=== PATIENT | female | born 1935 | race Asian ===

== ENCOUNTER 2017-07-31 15:57 | Inpatient (IN) | payer OTHER, MEDICAID ==
[~2017-07-31] VITALS: Ht 149.9 cm; Wt 40.9 kg
[~2017-07-31 15:57] MED LIST: METO200T5 PO; OXYC-302
[2017-07-31] MEDS ORDERED: SODIUM CHLORIDE FLUSH 10ML SYR IVF ONE (16:30)
[2017-07-31] MEDS ORDERED: SODIUM CHLORIDE 0.9% 1,000ML IVBOLUS ONE (16:30)
[2017-07-31 16:33] LABS: BASOPHILS # (AUTO) 0.01 x10^3/uL (0-0.1); BASOPHILS % (AUTO) 0 % (0-1); EOSINOPHILS # (AUTO) 0.01 x10^3/uL (0-0.4); EOSINOPHILS % (AUTO) 0 % (1-7); LYMPHOCYTES # (AUTO) 0.54 x10^3/uL (1-3.4); LYMPHOCYTES % (AUTO) 12 % (22-44); MD NO; MEAN CORPUSCULAR HEMOGLOBIN 30.3 pg (27.0-34.8); MEAN CORPUSCULAR HGB CONC 33.3 g/dL (32.4-35.8); MEAN PLATELET VOLUME 6.9 fL (7.4-10.4); MONOCYTES # (AUTO) 0.38 x10^3/uL (0.2-0.8); MONOCYTES % (AUTO) 8 % (2-9); NEUTROPHILS # (AUTO) 3.65 x10^3/uL (1.8-6.8); NEUTROPHILS % (AUTO) 80 % (42-75); PLATELET COUNT 243 x10^3/uL (130-400); RED BLOOD COUNT 4.11 x10^6/uL (3.82-5.3)
[2017-07-31 16:41] LABS: ANION GAP 10 mmol/L (5-15); CALCIUM 8.3 mg/dL (8.5-10.1); CHLORIDE 101 mmol/L (98-107); CREATININE 1.22 mg/dL (0.55-1.02)
[2017-07-31] MEDS ORDERED: AZITHROMYCIN 500 MG TABLET PO ONE (17:00)
[2017-07-31] MEDS ORDERED: CEFTRIAXONE PMX 1GM/50ML 50 ML IVPB ONE (17:00)
[2017-07-31] MEDS ORDERED: ONDANSETRON ODT 4 MG PO PRN (18:00)
[2017-07-31] MEDS ORDERED: TEMAZEPAM 15 MG CAPSULE PO PRN (18:00)
[2017-07-31] MEDS ORDERED: DOCUSATE 100 MG CAPSULE PO PRN (18:00)
[2017-07-31] MEDS ORDERED: GUAIFENESIN/DM 200-20MG, 10ML UDC PO PRN (18:00)
[2017-07-31] MEDS ORDERED: hydrALAzine 20 MG/ML, 1ML IVPush PRN (18:00)
[2017-07-31] MEDS ORDERED: OXYC5CAP2 PO (18:09)
[2017-07-31] MEDS ORDERED: DOCU-131 PO (18:09)
[2017-07-31] MEDS ORDERED: GABA100C PO (18:09)
[2017-07-31] MEDS ORDERED: LOSA50TA6 PO (18:09)
[2017-07-31] MEDS ORDERED: CHLO25TA PO (18:09)
[2017-07-31] MEDS ORDERED: OMEP-110 PO (18:09)
[2017-07-31] MEDS ORDERED: ASPI-13 PO (18:09)
[2017-07-31] MEDS ORDERED: CHOL100012 PO (18:09)
[2017-07-31] MEDS ORDERED: METO50TA82 PO (18:09)
[2017-07-31] MEDS ORDERED: BIOT1TAB2 PO (18:09)
[2017-07-31] MEDS ORDERED: GLUC500T11 PO (18:09)
[2017-07-31] MEDS ORDERED: CEFTRIAXONE PMX 1GM/50ML 50 ML ONE (18:17)
[2017-07-31] MEDS ORDERED: AZITHROMYCIN 250 MG TABLET ONE (18:18)
[2017-07-31] MEDS: SODIUM CHLORIDE 0.9% 1,000 ML IV SCH (18:28)
[2017-07-31] MEDS ORDERED: ENOXAPARIN 40 MG/0.4 ML SQ SCH (20:30)
[2017-08-01 00:55] VITALS: BP 134/68
[2017-08-01] MEDS: SODIUM CHLORIDE 0.9% 1,000 ML IV SCH ×2 (01:47→09:37)
[2017-08-01 06:08] LABS: BASOPHILS # (AUTO) 0.01 x10^3/uL (0-0.1); BASOPHILS % (AUTO) 0 % (0-1); EOSINOPHILS # (AUTO) 0.15 x10^3/uL (0-0.4); EOSINOPHILS % (AUTO) 4 % (1-7); LYMPHOCYTES # (AUTO) 0.99 x10^3/uL (1-3.4); LYMPHOCYTES % (AUTO) 24 % (22-44); MD NO; MEAN CORPUSCULAR HEMOGLOBIN 30.7 pg (27.0-34.8); MEAN CORPUSCULAR HGB CONC 33.4 g/dL (32.4-35.8); MEAN PLATELET VOLUME 7.2 fL (7.4-10.4); MONOCYTES # (AUTO) 0.41 x10^3/uL (0.2-0.8); MONOCYTES % (AUTO) 10 % (2-9); NEUTROPHILS # (AUTO) 2.54 x10^3/uL (1.8-6.8); NEUTROPHILS % (AUTO) 62 % (42-75); PLATELET COUNT 213 x10^3/uL (130-400); RED BLOOD COUNT 4.04 x10^6/uL (3.82-5.3); RED CELL DISTRIBUTION WIDTH 14.1 % (9.6-15.2)
[2017-08-01 06:19] LABS: ANION GAP 8 mmol/L (5-15); CHLORIDE 109 mmol/L (98-107)
[2017-08-01 06:23] LABS: CALCIUM 8.4 mg/dL (8.5-10.1); CREATININE 0.83 mg/dL (0.55-1.02)
[2017-08-01 07:43] VITALS: BP 153/73
[2017-08-01] MEDS: AZITHROMYCIN 250 MG TABLET PO SCH (09:37)
[2017-08-01 13:02] VITALS: BP 150/81
[2017-08-01] MEDS: CEFTRIAXONE 1,000 MG in DEXTROSE 5% 50 ML IV SCH (17:08)
[2017-08-01 18:42] VITALS: BP 127/73
[2017-08-01] MEDS: ENOXAPARIN 30 MG/0.3 ML SQ SCH (22:21)
[2017-08-02 00:52] VITALS: BP 160/84
[2017-08-02 07:44] VITALS: BP 156/80
[2017-08-02] MEDS: AZITHROMYCIN 250 MG TABLET PO SCH (08:46)
[2017-08-02] MEDS: GUAIFENESIN ER 600 MG TABLET PO SCH ×2 (08:46→22:48)
[2017-08-02] MEDS: ACETAMINOPHEN 325 MG TABLET PO PRN ×2 (08:51→22:44)
[2017-08-02 13:14] VITALS: BP 132/85
[2017-08-02] MEDS: CEFTRIAXONE 1,000 MG in DEXTROSE 5% 50 ML IV SCH (17:30)
[2017-08-02 18:58] VITALS: BP 141/37
[2017-08-02] MEDS: ENOXAPARIN 30 MG/0.3 ML SQ SCH (22:48)
[2017-08-03 00:49] VITALS: BP 139/82
[2017-08-03] MEDS ORDERED: CEFD300C37 PO (08:04)
[2017-08-03] MEDS ORDERED: GUAI600T31 PO (08:04)
[2017-08-03] MEDS ORDERED: OXYC5CAP2 PO (08:04)
[2017-08-03 08:30] VITALS: BP 124/71
[2017-08-03] MEDS: AZITHROMYCIN 250 MG TABLET PO SCH (09:23)
[2017-08-03] MEDS: GUAIFENESIN ER 600 MG TABLET PO SCH (09:23)
[2017-08-03 15:11] VITALS: BP 138/94
[2017-08-03] MEDS ORDERED: FLU VACC QS2017-18 (36MOS+) UP/PF 0.5 ML IM-VACC ONE (15:30)
== END 2017-08-03 17:00 | disposition home or self-care (01) | DRG 682 ==
LOC: ED 17:04 → EDIP 17:05 → ED 17:11 → 4WST 20:06
PROVIDERS: ADMIT Hospitalist; ATTEND Hospitalist
DX: N17.0 Acute kidney failure with tubular necrosis (principal); J15.9 Unspecified bacterial pneumonia; D68.69 Other thrombophilia; I48.2 Chronic atrial fibrillation; I13.10 Hypertensive heart and chronic kidney disease without heart failure, with stage 1 through stage 4 chronic kidney disease, or unspecified chronic kidney disease; F11.20 Opioid dependence, uncomplicated; R13.10 Dysphagia, unspecified; R73.9 Hyperglycemia, unspecified; K21.9 Gastro-esophageal reflux disease without esophagitis; Z23 Encounter for immunization; I25.2 Old myocardial infarction; N18.9 Chronic kidney disease, unspecified; Z87.11 Personal history of peptic ulcer disease; Z87.891 Personal history of nicotine dependence; Z90.3 Acquired absence of stomach [part of]; Z90.710 Acquired absence of both cervix and uterus
CPT/HCPCS: 36415; 71045; 80048; 82040; 83605; 83880; 84145; 85025; 87040; 90686; 93005; 96360; 96361; J0696; J1650; J7030

== ENCOUNTER 2020-01-27 11:06 | Emergency (ER) | payer MEDICARE, MEDICAID ==
[~2020-01-27] VITALS: Ht 157.5 cm; Wt 45.5 kg
[~2020-01-27 11:06] MED LIST changes: +ASPI-13 PO; +BIOT1TAB2 PO; +CEFD300C37 PO; +CHLO25TA PO; +CHOL100012 PO; +DIVA125T2 PO; +DOCU-131 PO; +DONE10TA56 PO; +GABA100C PO; +GLUC500T11 PO; +GUAI600T31 PO; +LOSA50TA14 PO; +METO200T47 PO; -METO200T5 PO; +METO50TA82 PO; +OMEP-110 PO; +OXYC5CAP2 PO; +QUET50TA PO; +SIMV10TA PO
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
[2020-01-27] MEDS ORDERED: PLEASE ENTER HEIGHT AND WEIGHT MC SCH (11:30)
[2020-01-27] MEDS ORDERED: SODIUM CHLORIDE 0.9% 1,000ML IVBOLUS ONE (11:30)
--- NOTE | 2020-01-27 11:47 | NUR ---
UA COLLECTED VIA STRAIGHT CATH, PT JULIET WELL, LABELED AND WALKED TO LAB.
[2020-01-27 11:50] LABS: BASOPHILS # (AUTO) 0.01 x10^3/uL (0-0.1); BASOPHILS % (AUTO) 0 % (0-1); EOSINOPHILS # (AUTO) 0.61 x10^3/uL (0-0.4); EOSINOPHILS % (AUTO) 13 % (1-7); LYMPHOCYTES # (AUTO) 0.77 x10^3/uL (1-3.4); LYMPHOCYTES % (AUTO) 17 % (22-44); MD NO; MEAN CORPUSCULAR HEMOGLOBIN 30.9 pg (27.0-34.8); MEAN CORPUSCULAR HGB CONC 31.8 g/dL (32.4-35.8); MEAN CORPUSCULAR VOLUME 97.1 fL (80-100); MEAN PLATELET VOLUME 6.8 fL (7.4-10.4); MONOCYTES # (AUTO) 0.36 x10^3/uL (0.2-0.8); MONOCYTES % (AUTO) 8 % (2-9); NEUTROPHILS # (AUTO) 2.91 x10^3/uL (1.8-6.8); NEUTROPHILS % (AUTO) 62 % (42-75); PLATELET COUNT 250 x10^3/uL (130-400); RED BLOOD COUNT 3.28 x10^6/uL (3.82-5.3); RED CELL DISTRIBUTION WIDTH 14.8 % (9.6-15.2)
[2020-01-27 12:00] LABS: ALBUMIN 2.7 g/dL (3.4-5.0); ANION GAP 5 mmol/L (5-15); CALCIUM 8.3 mg/dL (8.5-10.1); CHLORIDE 110 mmol/L (98-107)
[2020-01-27 12:05] LABS: CREATININE 1.31 mg/dL (0.55-1.02); TROPONIN I < 0.015 ng/mL (0.000-0.045)
[2020-01-27 12:09] LABS: MICROSCOPIC AUTO
--- NOTE | 2020-01-27 12:13 | NUR ---
PT CHART REVIEWED AND PLACED FOR RECHECK
--- NOTE | 2020-01-27 12:55 | NUR ---
PT RESTING ON ANTOLIN. ARN. VSS. 2ND WARM BLANKET PROVIDED.
--- NOTE | 2020-01-27 14:07 | NUR ---
CALLED [facility] AND SPOKE W/ PT'S SACK CLEANING HAND AND NOTIFIED THAT PT WILL NOT BE ADMITTED AND SENT HOME WITH A PRESCRIPTION FOR ABX. ALL QUESTIONS ANSWERED. BARTOLO LUONG RN TO SET UP [facility] FOR PT TRANSPORT.
--- NOTE | 2020-01-27 14:16 | NUR ---
PT RESTING ON GURNEY. [employer]. [facility] SCHEDULED FOR 1529 TODAY.
[2020-01-27 15:19] VITALS: BP 144/73
--- NOTE | 2020-01-27 15:19 | NUR ---
PT RESTING ON GURNEY. NADN. PRINCE.
== END 2020-01-27 15:36 | disposition home or self-care (01) ==
LOC: ED 12:51
DX: N30.00 Acute cystitis without hematuria (principal); E86.0 Dehydration; R55 Syncope and collapse; R53.1 Weakness; I48.91 Unspecified atrial fibrillation; R41.82 Altered mental status, unspecified; R94.31 Abnormal electrocardiogram [ECG] [EKG]; I10 Essential (primary) hypertension; I25.2 Old myocardial infarction
CPT/HCPCS: 36415; 71045; 80048; 81001; 82040; 84484; 85025; 87077; 87086; 87186; 93005; 99285; J7030; 96360; 96361

== ENCOUNTER → 2020-03-17 | Outpatient (CLI) | payer MEDICARE, MEDICAID ==
[~2020-03-17] MED LIST changes: +OMNIPAQUE 350 MG/ML, 100ML BOTTLE ONE
== END | disposition home or self-care (01) ==
LOC: CFH 12:54
PROVIDERS: ATTEND Physician Assistant
DX: N20.0 Calculus of kidney (principal); J98.11 Atelectasis; M41.86 Other forms of scoliosis, lumbar region; M51.36 Other intervertebral disc degeneration, lumbar region; M43.8X6 Other specified deforming dorsopathies, lumbar region; M85.88 Other specified disorders of bone density and structure, other site; M43.16 Spondylolisthesis, lumbar region
CPT/HCPCS: 74177; Q9967

== ENCOUNTER 2020-04-09 17:36 | Inpatient (IN) | payer MEDICARE, MEDICAID ==
[~2020-04-09] VITALS: Ht 157.5 cm; Wt 41.2 kg
[~2020-04-09 17:36] MED LIST changes: -OMNIPAQUE 350 MG/ML, 100ML BOTTLE ONE
[2020-04-09] MEDS ORDERED: SODIUM CHLORIDE 0.9% 1,000ML IVBOLUS ONE (18:00)
[2020-04-09] MEDS ORDERED: SODIUM CHLORIDE FLUSH 10ML SYR IVF ONE (18:00)
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
[2020-04-09 18:17] LABS: BASOPHILS % (AUTO) 0 % (0-1); EOSINOPHILS # (AUTO) 0.64 x10^3/uL (0-0.4); EOSINOPHILS % (AUTO) 14 % (1-7); LYMPHOCYTES # (AUTO) 1.18 x10^3/uL (1-3.4); LYMPHOCYTES % (AUTO) 26 % (22-44); MD NO; MEAN CORPUSCULAR HEMOGLOBIN 31.4 pg (27.0-34.8); MEAN CORPUSCULAR HGB CONC 31.9 g/dL (32.4-35.8); MEAN PLATELET VOLUME 6.8 fL (7.4-10.4); MONOCYTES # (AUTO) 0.41 x10^3/uL (0.2-0.8); MONOCYTES % (AUTO) 9 % (2-9); NEUTROPHILS # (AUTO) 2.37 x10^3/uL (1.8-6.8); NEUTROPHILS % (AUTO) 52 % (42-75); PLATELET COUNT 266 x10^3/uL (130-400); RED CELL DISTRIBUTION WIDTH 14.3 % (9.6-15.2)
[2020-04-09 18:22] LABS: INTERNATIONAL NORMALIZED RATIO 1.08 (0.93-1.1); PROTHROMBIN TIME 11.1 Seconds (9.6-11.5)
[2020-04-09 18:23] LABS: ALBUMIN 2.5 g/dL (3.4-5.0); ANION GAP 5 mmol/L (5-15); CALCIUM 8.2 mg/dL (8.5-10.1); CHLORIDE 113 mmol/L (98-107); CREATININE 1.33 mg/dL (0.55-1.02)
[2020-04-09 18:27] LABS: TROPONIN I < 0.015 ng/mL (0.000-0.045)
[2020-04-09 19:03] LABS: ALANINE AMINOTRANSFERASE 14 U/L (12-78); ALBUMIN 2.5 g/dL (3.4-5.0); BILIRUBIN, DIRECT < 0.1 mg/dL (0.1-0.2)
[2020-04-09 19:05] LABS: ALKALINE PHOSPHATASE 60 U/L (45-117); BILIRUBIN,TOTAL 0.1 mg/dL (0.2-1.0); TOTAL PROTEIN 5.6 g/dL (6.4-8.2)
--- NOTE | 2020-04-09 19:09 | NUR ---
head ct neg/cxr neg. ammonia 56. straight cath in process. vss, SR 70s. contineus to rest w/ eyes closed, lethargic. fall precs in place. as
[2020-04-09 19:28] LABS: MICROSCOPIC AUTO
[2020-04-09 19:37] LABS: AMPHETAMINE SCREEN, URINE Negative (Negative); BARBITURATE SCREEN, URINE Negative (Negative); BENZODIAZEPINE SCREEN, URINE Negative (Negative); CANNABINOID SCREEN, URINE Negative (Negative); COCAINE SCREEN, URINE Negative (Negative); METHADONE SCREEN, URINE Negative (Negative); OPIATE SCREEN, URINE Negative (Negative)
--- NOTE | 2020-04-09 19:47 | NUR ---
DNR per her paperwork. as
[2020-04-09] MEDS ORDERED: CEFTRIAXONE PMX 1GM/50ML 50 ML ONE (20:00)
[2020-04-09] MEDS ORDERED: CEFTRIAXONE PMX 1GM/50ML 50 ML IV ONE (20:00)
--- NOTE | 2020-04-09 20:06 | NUR ---
ua +nitrites abx per mar placed on 2lnc now 100%, sleeping. as
[2020-04-09] MEDS ORDERED: LOPE-114 PO (20:44)
[2020-04-09] MEDS ORDERED: TRAZ-175 PO (20:44)
[2020-04-09] MEDS ORDERED: ACET325T26 PO (20:44)
[2020-04-09] MEDS ORDERED: GABA300C PO (20:44)
[2020-04-09] MEDS ORDERED: OMEP-110 PO (20:44)
[2020-04-09] MEDS ORDERED: CETI5TAB3 PO (20:44)
[2020-04-09] MEDS ORDERED: LOSA100T14 PO (20:44)
--- NOTE | 2020-04-09 20:57 | NUR ---
report to biju somers. as
--- NOTE | 2020-04-09 20:57 | NUR ---
hospitalist was in room. as
--- NOTE | 2020-04-09 20:57 | NUR ---
BEDSIDE REPORT FROM NICHOLE BUSCH. PT CARE TO BE TRANSFERRED AT THIS TIME. PT RESTING ON GURNEY, NAD, APPEARS COMFORTABLE, CALL LIGHT ON LAP. PT TO BE ADMITTED. CAMPBELL.
[2020-04-09] MEDS ORDERED: PROMETHAZINE 25 MG/ML, 1ML IM PRN (21:00)
[2020-04-09] MEDS ORDERED: ACETAMINOPHEN 325 MG TABLET PO PRN (21:00)
--- NOTE | 2020-04-09 21:23 | NUR ---
REPORT CALLED TO SARAH BUSCH, PT CARE TO BE TRANSFERRED UPON ARRIVAL TO THE FLOOR. CAMPBELL JOYNER
[2020-04-09 21:50] VITALS: BP 147/79
[2020-04-09] MEDS: LACTULOSE 10 GM/15 ML UDC PO SCH (22:04)
[2020-04-09] MEDS: OMEPRAZOLE 20 MG CAPSULE.DR PO SCH (22:05)
[2020-04-09] MEDS: DONEPEZIL 10 MG TABLET PO SCH (22:05)
[2020-04-09] MEDS: QUETIAPINE 25MG TABLET PO SCH (22:05)
[2020-04-09] MEDS: DIVALPROEX 125 MG TABLET.DR PO SCH (22:05)
[2020-04-10] VITALS (7 sets, daily range): BP systolic 99–159; BP diastolic 59–92
[2020-04-10 05:27] LABS: CHLORIDE 112 mmol/L (98-107)
[2020-04-10 05:35] LABS: BASOPHILS # (AUTO) 0.02 x10^3/uL (0-0.1); BASOPHILS % (AUTO) 0 % (0-1); EOSINOPHILS # (AUTO) 0.58 x10^3/uL (0-0.4); EOSINOPHILS % (AUTO) 12 % (1-7); LYMPHOCYTES # (AUTO) 1.15 x10^3/uL (1-3.4); LYMPHOCYTES % (AUTO) 24 % (22-44); MD NO; MEAN CORPUSCULAR HEMOGLOBIN 30.8 pg (27.0-34.8); MEAN CORPUSCULAR HGB CONC 31.6 g/dL (32.4-35.8); MONOCYTES # (AUTO) 0.36 x10^3/uL (0.2-0.8); MONOCYTES % (AUTO) 8 % (2-9); NEUTROPHILS # (AUTO) 2.67 x10^3/uL (1.8-6.8); NEUTROPHILS % (AUTO) 56 % (42-75); PLATELET COUNT 267 x10^3/uL (130-400); RED BLOOD COUNT 3.31 x10^6/uL (3.82-5.3); RED CELL DISTRIBUTION WIDTH 14.4 % (9.6-15.2)
[2020-04-10 05:37] LABS: ANION GAP 6 mmol/L (5-15); CALCIUM 8.8 mg/dL (8.5-10.1); CREATININE 1.14 mg/dL (0.55-1.02)
[2020-04-10] MEDS ORDERED: METOPROLOL TARTRATE 25 MG TAB PO SCH (06:00)
[2020-04-10] MEDS: LACTULOSE 10 GM/15 ML UDC PO SCH ×2 (08:15→22:36)
[2020-04-10] MEDS: QUETIAPINE 25MG TABLET PO SCH ×2 (08:15→22:38)
[2020-04-10] MEDS: ASPIRIN 325 MG TABLET EC PO SCH (08:15)
[2020-04-10] MEDS: OMEPRAZOLE 20 MG CAPSULE.DR PO SCH ×2 (08:15→22:37)
[2020-04-10] MEDS ORDERED: ACETAMINOPHEN 325 MG TABLET PO PRN (08:30)
[2020-04-10] MEDS: CHLORTHALIDONE 25 MG TABLET PO SCH (08:48)
[2020-04-10] MEDS ORDERED: CHLORTHALIDONE 25 MG TABLET PO SCH (09:00)
[2020-04-10] MEDS: HEPARIN 5,000 UNITS/ML, 1ML SQ SCH ×2 (09:32→22:35)
[2020-04-10] MEDS: LACTOBACILLUS CHEW TABLET PO SCH ×3 (09:32→22:36)
[2020-04-10] MEDS: CEFDINIR 300 MG CAPSULE PO SCH (17:08)
[2020-04-10] MEDS: METOPROLOL SUCCINATE 25 MG TAB.ER.24H PO SCH (22:23)
[2020-04-10] MEDS: DIVALPROEX 125 MG TABLET.DR PO SCH (22:36)
[2020-04-10] MEDS: DONEPEZIL 10 MG TABLET PO SCH (22:37)
[2020-04-11 02:08] VITALS: BP 160/86
[2020-04-11] MEDS: HEPARIN 5,000 UNITS/ML, 1ML SQ SCH ×2 (07:55→19:51)
[2020-04-11] MEDS: LACTULOSE 10 GM/15 ML UDC PO SCH ×2 (07:55→19:51)
[2020-04-11] MEDS: LACTOBACILLUS CHEW TABLET PO SCH ×3 (07:55→19:52)
[2020-04-11] MEDS: CEFDINIR 300 MG CAPSULE PO SCH (07:56)
[2020-04-11] MEDS: ASPIRIN 325 MG TABLET EC PO SCH (07:56)
[2020-04-11] MEDS: OMEPRAZOLE 20 MG CAPSULE.DR PO SCH ×2 (07:56→19:51)
[2020-04-11] MEDS: QUETIAPINE 25MG TABLET PO SCH ×2 (07:56→19:52)
[2020-04-11] MEDS: CHLORTHALIDONE 25 MG TABLET PO SCH (07:56)
[2020-04-11] MEDS ORDERED: METOPROLOL TARTRATE 25 MG TAB ONE (13:41)
[2020-04-11] MEDS ORDERED: METOPROLOL TARTRATE 25 MG TAB PO ONE (14:00)
[2020-04-11 15:15] VITALS: BP 155/85
[2020-04-11] MEDS: METOPROLOL TARTRATE 25 MG TAB PO SCH (16:32)
[2020-04-11 19:28] VITALS: BP 132/65
[2020-04-11] MEDS: DONEPEZIL 10 MG TABLET PO SCH (19:51)
[2020-04-11] MEDS: DIVALPROEX 125 MG TABLET.DR PO SCH (19:51)
[2020-04-11 19:57] VITALS: BP 145/76
[2020-04-11] MEDS: LISINOPRIL 5 MG TABLET PO SCH (20:16)
[2020-04-11] MEDS: METOPROLOL SUCCINATE 25 MG TAB.ER.24H PO SCH (21:00)
[2020-04-12 01:51] VITALS: BP 153/88
[2020-04-12 05:31] LABS: CHLORIDE 106 mmol/L (98-107)
[2020-04-12 05:38] LABS: % IRON SATURATION 22 % (20-55); ANION GAP 6 mmol/L (5-15); CALCIUM 9.4 mg/dL (8.5-10.1); CREATININE 1.15 mg/dL (0.55-1.02); IRON LEVEL 90 mcg/dL (50-170); TOTAL IRON BINDING CAPACITY 405 mcg/dL (250-450)
[2020-04-12 06:06] VITALS: BP 146/97
[2020-04-12] MEDS: METOPROLOL TARTRATE 25 MG TAB PO SCH ×2 (06:07→17:34)
[2020-04-12 07:07] VITALS: BP 152/87
[2020-04-12] MEDS: LACTULOSE 10 GM/15 ML UDC PO SCH (07:51)
[2020-04-12] MEDS: CHLORTHALIDONE 25 MG TABLET PO SCH (07:52)
[2020-04-12] MEDS: OMEPRAZOLE 20 MG CAPSULE.DR PO SCH ×2 (07:52→20:19)
[2020-04-12] MEDS: CEFDINIR 300 MG CAPSULE PO SCH (07:52)
[2020-04-12] MEDS: ASPIRIN 325 MG TABLET EC PO SCH (07:52)
[2020-04-12] MEDS: QUETIAPINE 25MG TABLET PO SCH ×2 (07:52→20:18)
[2020-04-12] MEDS: LACTOBACILLUS CHEW TABLET PO SCH ×3 (07:52→20:18)
[2020-04-12] MEDS: HEPARIN 5,000 UNITS/ML, 1ML SQ SCH ×2 (07:53→20:18)
[2020-04-12] MEDS ORDERED: SENNA 176 MG/5 ML ORAL SOL NG PRN (08:00)
[2020-04-12 13:23] VITALS: BP 132/81
[2020-04-12 17:34] VITALS: BP 143/90
[2020-04-12 19:37] VITALS: BP 151/76
[2020-04-12] MEDS: LISINOPRIL 5 MG TABLET PO SCH (20:18)
[2020-04-12] MEDS: DIVALPROEX 125 MG TABLET.DR PO SCH (20:18)
[2020-04-12] MEDS: DONEPEZIL 10 MG TABLET PO SCH (20:19)
[2020-04-13 00:50] VITALS: BP 139/78
[2020-04-13 05:03] LABS: ANION GAP 8 mmol/L (5-15); CALCIUM 9.8 mg/dL (8.5-10.1); CHLORIDE 104 mmol/L (98-107); CREATININE 1.16 mg/dL (0.55-1.02)
[2020-04-13] MEDS: METOPROLOL TARTRATE 25 MG TAB PO SCH ×2 (06:21→18:16)
[2020-04-13 07:06] VITALS: BP 155/85
[2020-04-13] MEDS: CHLORTHALIDONE 25 MG TABLET PO SCH (09:23)
[2020-04-13] MEDS: LACTOBACILLUS CHEW TABLET PO SCH ×3 (09:23→20:43)
[2020-04-13] MEDS: CEFDINIR 300 MG CAPSULE PO SCH (09:23)
[2020-04-13] MEDS: HEPARIN 5,000 UNITS/ML, 1ML SQ SCH ×2 (09:23→20:42)
[2020-04-13] MEDS: QUETIAPINE 25MG TABLET PO SCH ×2 (09:24→20:43)
[2020-04-13] MEDS: ASPIRIN 325 MG TABLET EC PO SCH (09:24)
[2020-04-13] MEDS: OMEPRAZOLE 20 MG CAPSULE.DR PO SCH ×2 (09:24→20:43)
[2020-04-13] MEDS ORDERED: LOSA100T14 PO ×2 (09:57)
[2020-04-13] MEDS ORDERED: CHLO25TA PO ×2 (09:57)
[2020-04-13] MEDS ORDERED: ACID1TAB7 PO (09:57)
[2020-04-13 12:03] VITALS: BP 131/79
[2020-04-13 18:14] VITALS: BP 159/80
[2020-04-13 19:50] VITALS: BP 147/88
[2020-04-13] MEDS: DIVALPROEX 125 MG TABLET.DR PO SCH (20:42)
[2020-04-13] MEDS: LISINOPRIL 5 MG TABLET PO SCH (20:43)
[2020-04-13] MEDS: DONEPEZIL 10 MG TABLET PO SCH (20:43)
[2020-04-14 01:19] VITALS: BP 122/67
[2020-04-14 05:12] VITALS: BP 151/96
[2020-04-14] MEDS: METOPROLOL TARTRATE 25 MG TAB PO SCH ×2 (06:01→17:33)
[2020-04-14 07:15] VITALS: BP 163/87
[2020-04-14] MEDS: ASPIRIN 325 MG TABLET EC PO SCH (08:46)
[2020-04-14] MEDS: HEPARIN 5,000 UNITS/ML, 1ML SQ SCH ×2 (08:46→21:15)
[2020-04-14] MEDS: LACTOBACILLUS CHEW TABLET PO SCH ×3 (08:46→21:15)
[2020-04-14] MEDS: OMEPRAZOLE 20 MG CAPSULE.DR PO SCH ×2 (08:47→21:16)
[2020-04-14] MEDS: CEFDINIR 300 MG CAPSULE PO SCH (08:47)
[2020-04-14] MEDS: CHLORTHALIDONE 25 MG TABLET PO SCH (08:47)
[2020-04-14] MEDS: QUETIAPINE 25MG TABLET PO SCH ×2 (08:47→21:15)
[2020-04-14] MEDS: TAMSULOSIN 0.4 MG CAP.ER.24H PO SCH (10:42)
[2020-04-14 13:53] VITALS: BP 141/73
[2020-04-14 17:31] VITALS: BP 134/70
[2020-04-14 19:21] VITALS: BP 108/60
[2020-04-14] MEDS: DONEPEZIL 10 MG TABLET PO SCH (21:15)
[2020-04-14] MEDS: LISINOPRIL 5 MG TABLET PO SCH (21:16)
[2020-04-14] MEDS: DIVALPROEX 125 MG TABLET.DR PO SCH (21:16)
[2020-04-15] VITALS (7 sets, daily range): BP systolic 103–125; BP diastolic 60–79
[2020-04-15] MEDS: METOPROLOL TARTRATE 25 MG TAB PO SCH ×2 (05:39→19:33)
[2020-04-15] MEDS: HEPARIN 5,000 UNITS/ML, 1ML SQ SCH ×2 (08:50→19:28)
[2020-04-15] MEDS: ASPIRIN 325 MG TABLET EC PO SCH (08:50)
[2020-04-15] MEDS: LACTOBACILLUS CHEW TABLET PO SCH ×3 (08:50→19:29)
[2020-04-15] MEDS: TAMSULOSIN 0.4 MG CAP.ER.24H PO SCH (08:50)
[2020-04-15] MEDS: CEFDINIR 300 MG CAPSULE PO SCH (08:50)
[2020-04-15] MEDS: OMEPRAZOLE 20 MG CAPSULE.DR PO SCH ×2 (08:50→19:30)
[2020-04-15] MEDS: QUETIAPINE 25MG TABLET PO SCH ×2 (08:51→19:28)
[2020-04-15] MEDS: CHLORTHALIDONE 25 MG TABLET PO SCH (08:51)
[2020-04-15] MEDS ORDERED: CHLO25TA PO (15:03)
[2020-04-15] MEDS ORDERED: CEFD300C37 PO (15:03)
[2020-04-15] MEDS ORDERED: SENN1TAB94 PO (15:34)
[2020-04-15] MEDS: DONEPEZIL 10 MG TABLET PO SCH (19:28)
[2020-04-15] MEDS: LISINOPRIL 5 MG TABLET PO SCH (19:29)
[2020-04-15] MEDS: DIVALPROEX 125 MG TABLET.DR PO SCH (19:29)
== END 2020-04-15 20:20 | disposition home health service (06) | DRG 871 ==
LOC: ED 20:30 → EDIP 20:52 → OBSVTOIN 20:52 → 4WST 21:43
PROVIDERS: ADMIT Family Medicine; ATTEND Hospitalist
DX: A41.9 Sepsis, unspecified organism (principal); G93.41 Metabolic encephalopathy; N39.0 Urinary tract infection, site not specified; E44.0 Moderate protein-calorie malnutrition; Z68.1 Body mass index [BMI] 19.9 or less, adult; F11.20 Opioid dependence, uncomplicated; N17.9 Acute kidney failure, unspecified; Z66 Do not resuscitate; D64.9 Anemia, unspecified; F03.90 Unspecified dementia, unspecified severity, without behavioral disturbance, psychotic disturbance, mood disturbance, and anxiety; F31.9 Bipolar disorder, unspecified; G89.29 Other chronic pain; I12.9 Hypertensive chronic kidney disease with stage 1 through stage 4 chronic kidney disease, or unspecified chronic kidney disease; N18.3 Chronic kidney disease, stage 3 (moderate); I25.10 Atherosclerotic heart disease of native coronary artery without angina pectoris; I48.0 Paroxysmal atrial fibrillation; I49.5 Sick sinus syndrome; K21.9 Gastro-esophageal reflux disease without esophagitis; I25.2 Old myocardial infarction; Z87.11 Personal history of peptic ulcer disease; Z90.49 Acquired absence of other specified parts of digestive tract
CPT/HCPCS: 36415; 70450; 71045; 80048; 80076; 80164; 80307; 81001; 82040; 82140; 83540; 83550; 84443; 84484; 85025; 85610; 85730; 87077; 87086; 87186; 93005; 96374; 99291; G0378; J0696; J1644; J7030